=== PATIENT | female | born 1975 | race Caucasian/White ===

== ENCOUNTER → 2016-10-07 | Outpatient (CLI) | payer BC ==
--- NOTE | 2016-10-07 17:14 | PCVCIMAG ---
APPROVED REPORT Patient Location: Echo lab- Treadmill Stress Test Room #: Stress Nurse: Nhung Atkinson RN Indications- Chest Pain, Fam hx CAD, HTN The patient exercised according to the William Protocol for 9:39 minutes; achieving a work level of 12.1 METS. The resting heart rate of 89 bpm lolis to 184 bpm maximum. This value represents 101% of the age predicted maximal heart rate. The resting blood pressure of 122/84 mmHg lolis to maximum blood pressure of 158/66 mmHg. The exercise stress test was stopped due to Fatigue and Dyspnea. No ST segment shifts diagnostic of ischemia. Rare, isolated PVC's Conclusion 1. Maximal treadmill exercise study negative for ischemia. 2. No chest pain or ischemic-sounding symptoms 3. Study associated with good exercise capacity (12.1 METS)
--- NOTE | 2016-10-07 17:19 | PCVCIMAG ---
APPROVED REPORT Study performed: 10/07/2016 15:15:58 EXAM: Comprehensive 2D, Doppler, and color-flow Echocardiogram Patient Location: Echo lab Status: routine BSA: 2.03 HR: 94 bpmBP: 122/84 mmHg Rhythm: NSR Other Information Study Quality: Adequate Risk Factors: Cardiac Risk Factors: HTN, FHX of CAD Indications Chest Pain 2D Dimensions LVEF(%): 52.35 (>50%) IVSd: 7.92 (7-11mm) LVDd: 40.77 mm PWd: 10.26 (7-11mm) LVDs: 29.96 (25-40mm) Left Atrium: 40.33 (27-40mm) Aortic Root: 24.57 mm LV Single Plane 4CH: 68.02 % LV Single Plane 2CH: 71.34 %Mandel's LVEF: 69.68 % Biplane EF: 70.2 % Volumes Left Atrial Volume (Systole) Single Plane 4CH: 83.78 mLSingle Plane 2CH: 68.99 mL LA ESV Index: 38.00 mL/m2 Aortic Valve AoV Peak Brigido.: 2.03 m/s AO Peak Gr.: 16.47 mmHgLVOT Max P.56 mmHg LVOT Max V: 1.37 m/s Mitral Valve E/A Ratio: 0.9 MV Decel. Time: 254.10 ms MV E Max Brigido.: 1.09 m/s MV A Brigido.: 1.26 m/s IVRT: 65.74 ms Pulmonary Valve PV Peak Brigido.: 1.16 m/sPV Peak Gr.: 5.42 mmHg Pulmonary Vein P Vein S: 0.38 m/sP Vein A: 0.33 m/s P Vein D: 0.57 m/sP Vein A Dur.: 121.1 msec P Vein S/D Ratio: 0.67 Left Ventricle The left ventricle is normal size. There is normal LV segmental wall motion. There is normal left ventricular wall thickness. Left ventricular systolic function is normal. The left ventricular ejection fraction is within the normal range. LVEF is 65%. The left ventricular diastolic function is normal. Right Ventricle The right ventricle is normal size. The right ventricular systolic function is normal. Atria The left atrium size is normal. The right atrium size is normal. Aortic Valve The aortic valve is normal in structure. No aortic regurgitation is present. There is no aortic valvular stenosis. Mitral Valve The mitral valve is normal in structure. Mild mitral regurgitation. No evidence of mitral valve stenosis. Tricuspid Valve The tricuspid valve is normal in structure. There is no tricuspid valve regurgitation noted. Pulmonic Valve The pulmonary valve is normal in structure. There is no pulmonic valvular regurgitation. Great Vessels The aortic root is normal in size. IVC is normal in size and collapses with >50% inspiration Pericardium There is no pericardial effusion. <Conclusion> 1. Normal echocardiogram with Doppler. EF 65% 2. A pericardial effusion was absent
== END | disposition home or self-care (01) ==
LOC: PCVCIMAG 15:19
PROVIDERS: ATTEND Internal Medicine
DX: I34.0 Nonrheumatic mitral (valve) insufficiency (principal); I49.3 Ventricular premature depolarization; I10 Essential (primary) hypertension; I25.10 Atherosclerotic heart disease of native coronary artery without angina pectoris; E78.5 Hyperlipidemia, unspecified; Z82.49 Family history of ischemic heart disease and other diseases of the circulatory system
CPT/HCPCS: 93017; 93306